=== PATIENT | male | born 1990 | race Caucasian/White ===

== ENCOUNTER → 2018-04-11 | Outpatient (CLI) | payer BC | LOC: M OUTALCOH 07:53 | DX: Z13.9 Encounter for screening, unspecified (principal); Z03.89 Encounter for observation for other suspected diseases and conditions ruled out ==

== ENCOUNTER 2018-04-21 10:15 | Outpatient (RCR) | payer BC | END 2018-05-12 | LOC: M OUTALCOH 10:15 | PROVIDERS: ATTEND Psychiatry & Neurology Psychiatry | DX: Z03.89 Encounter for observation for other suspected diseases and conditions ruled out (principal) ==

== ENCOUNTER → 2022-05-16 | Outpatient (CLI) | payer BC | LOC: M LABSMTC 10:02 | PROVIDERS: ATTEND Anesthesiology | DX: Z01.812 Encounter for preprocedural laboratory examination (principal); Z20.822 Contact with and (suspected) exposure to COVID-19 ==

== ENCOUNTER 2022-05-21 10:51 | Day surgery (SDC) | payer BC ==
[~2022-05-21] VITALS: Ht 180.3 cm; Wt 77.0 kg
[~2022-05-21 10:51] MED LIST: ceFAZolin SOD 2 GM in IV 1 EA IV ONE
[2022-05-21] MEDS ORDERED: LR 1,000 ML IV SCH ×2 (11:20→14:40)
[2022-05-21 11:51] LABS: HEMATOCRIT 49.6 % (42.0-52.0); HEMOGLOBIN 17.1 g/dl (13.5-17.5); MEAN CORPUSCULAR HEMOGLOBIN 32.6 pg (27.0-33.0); MEAN CORPUSCULAR HGB CONC 34.5 g/dl (32.0-36.5); MEAN CORPUSCULAR VOLUME 94.5 fl (80.0-96.0); PLATELET COUNT, AUTOMATED 198 10^3/uL (150-450); RED BLOOD COUNT 5.25 10^6/uL (4.30-6.10); WHITE BLOOD COUNT 5.1 10^3/uL (4.0-10.0)
[2022-05-21] MEDS ORDERED: fentaNYL 250 MCG/5 ML INJECTION As Ordered ONE (12:18)
[2022-05-21] MEDS ORDERED: ROCURONIUM BROMIDE 50MG/5ML VIAL As Ordered ONE (12:18)
[2022-05-21] MEDS ORDERED: MIDAZOLAM INJ 2MG/2ML VIAL As Ordered ONE (12:18)
[2022-05-21] MEDS ORDERED: LIDOCAINE 2% 100MG/5ML SDV (FOR ANES.) As Ordered ONE (12:18)
[2022-05-21] MEDS ORDERED: propofoL 200 MG/20 ML VIAL As Ordered ONE (12:18)
[2022-05-21] MEDS ORDERED: BUPIVACAINE/EPIN 0.25% 30ML VIAL As Ordered ONE (12:30)
[2022-05-21] MEDS ORDERED: ONDANSETRON 4MG 2ML VIAL As Ordered ONE (13:19)
[2022-05-21] MEDS ORDERED: ACETAMINOPHEN 1000MG 100ML IV BAG As Ordered ONE (13:19)
[2022-05-21] MEDS ORDERED: KETOROLAC 60MG 2ML VIAL As Ordered ONE (13:19)
[2022-05-21] MEDS ORDERED: SUGAMMADEX SODIUM 500 MG/5 ML VIAL (BRIDION) As Ordered ONE (13:19)
[2022-05-21] MEDS ORDERED: METOCLOPRAMIDE INJ 10MG/2ML VIAL IV PRN (14:40)
[2022-05-21] MEDS ORDERED: fentaNYL 100 MCG/2 ML INJECTION IV PRN (14:40)
[2022-05-21] MEDS ORDERED: HYDROMORPHONE HCL 0.5 MG/ 0.5 ML SYRINGE IV PRN (14:40)
[2022-05-21] MEDS ORDERED: oxyCODONE 5MG TAB PO PRN (14:40)
[2022-05-21] MEDS ORDERED: ONDANSETRON 4MG 2ML VIAL IV PRN (14:40)
[2022-05-21] MEDS ORDERED: NORCO, ANEXSIA 5/325MG TABLET (HYDROcodone/ACETAMINOPHEN) PO PRN (15:15)
[2022-05-21] MEDS ORDERED: hydrALAZINE 20MG/ML 1ML VIAL IV STA (15:25)
[2022-05-21 15:31] VITALS: BP 177/100
[2022-05-21 16:08] VITALS: BP 166/87
== END 2022-05-21 16:49 | disposition home or self-care (01) ==
LOC: M SDC 10:51
PROVIDERS: ATTEND Surgery
DX: K40.30 Unilateral inguinal hernia, with obstruction, without gangrene, not specified as recurrent (principal)
CPT/HCPCS: 36415; 49650; 85027; C1781; J1100; J2405; S2900